=== PATIENT | female | born 1970 | race Caucasian/White ===

== ENCOUNTER 2019-12-01 15:41 | Emergency (ER) | payer OTHER ==
--- NOTE | 2019-12-01 16:19 | ED ---
General Adult HPI - General Stated complaint: ETOH Time Seen by Provider: 12/01/19 15:58 Source: patient, RN notes reviewed, old records reviewed - History of Present Illness Initial comments: 49-year-old female presenting with alcohol intoxication. Patient was attempting to go to rehabilitation today and admits to drinking a fifth of vodka prior to checking herself in. She was intoxicated at the time of check in and was sent to the emergency department for clearance. She admits to drinking vodka prior to arrival. She is alert and oriented. Denying any complaints, no headache. No chest pain. No abdominal pain. No nausea vomiting or diarrhea. No focal numbness or weakness. No seizure activity. No suicidal or homicidal ideation. She is accompanied by her friend who is driving. Review of Systems ROS Statement: Those systems with pertinent positive or pertinent negative responses have been documented in the HPI. ROS Other: All systems not noted in ROS Statement are negative. General Exam General appearance: alert, appears intoxicated Head exam: Present: atraumatic, normocephalic Eye exam: Present: normal appearance, PERRL ENT exam: Present: normal exam, mucous membranes moist Neck exam: Present: normal inspection. Absent: tenderness, meningismus Respiratory exam: Present: normal lung sounds bilaterally. Absent: respiratory distress Cardiovascular Exam: Present: regular rate, normal rhythm GI/Abdominal exam: Present: soft. Absent: distended, tenderness, guarding Extremities exam: Present: normal inspection, normal capillary refill. Absent: pedal edema, calf tenderness Neurological exam: Present: alert, oriented X3, CN II-XII intact, other (No ataxia). Absent: motor sensory deficit Psychiatric exam: Present: normal affect, normal mood. Absent: homicidal ideation, suicidal ideation Skin exam: Present: warm, dry, intact. Absent: cyanosis, diaphoretic Course Vital Signs 12/01/19 16:20 Temperature 98.2 F Pulse Rate 90 Respiratory 18 Rate Blood Pressure 123/86 O2 Sat by Pulse 98 Oximetry Medical Decision Making - Medical Decision Making 49-year-old female presenting with alcohol intoxication. No specific complaints. No suicidal or homicidal ideation. She is intoxicated but ambulatory without assistance. She has admitted to alcohol consumption and is eager to initiate rehab. She was able to eat a sandwich in the emergency department as well as drink some water. She has a friend who is with her who is able to drive her back to rehab. Patient eager for discharge. Disposition Clinical Impression: Alcoholic intoxication Disposition: HOME SELF-CARE Condition: Fair Instructions (If sedation given, give patient instructions): Alcohol Intoxication (ED) Additional Instructions: Please follow up with her primary care physician, please return with worsening or changing symptoms. Is patient prescribed a controlled substance at d/c from ED?: No Referrals: None,Stated [Primary Care Provider] - 1-2 days Miguelito Apple [STAFF PHYSICIAN] - 1-2 days Time of Disposition: 17:16
[2019-12-01 16:34] VITALS: BP 123/86; RESP 18; TEMP 98.2
[2019-12-01 17:26] VITALS: PULSE 80
== END 2019-12-01 17:22 | disposition home or self-care (01) ==
LOC: EC 15:41
DX: F10.129 Alcohol abuse with intoxication, unspecified (principal); F17.200 Nicotine dependence, unspecified, uncomplicated
CPT/HCPCS: 99284